=== PATIENT | female | born 1975 | race Caucasian/White ===

== ENCOUNTER 2018-04-28 07:29 | Observation (INO) ==
--- NOTE | 2018-04-22 09:23 | Anesthesiology Consultation ---
Date of Service April 22, 2018 Obesity Asthma Assessment & Plan (1) Encounter for pre-operative examination: Chart Review Chart Review: Acceptable Risk for Surgery and Patient NOT seen in Pre Admission Testing Consults Requested none History Surgery Operation Date: 04/28/18 11:30 Proposed Procedures p Bilateral Breast Mastectomy with Left [place] Lymph Node Biopsy (Injection and Scan) - True Dale DO, TIFFANY Height/Weight Height: 5 ft Weight: 90.718 kg Allergies Allergy/AdvReac Type Severity Reaction Status Date / Time "CHEAP JEWELRY" Allergy Unknown ITCHINESS Uncoded 04/21/18 08:36 SEASONAL ALLERGIES Allergy Unknown Uncoded 04/21/18 08:36 Medications Home Medications Medication Instructions Recorded Confirmed Last Taken Excedrin 1 dose PO UD PRN 04/21/18 04/21/18 Unknown albuterol sulfate 1 - 2 puff INHALATION UD PRN 04/21/18 04/21/18 Unknown diphenhydramine HCl [Benadryl] 15 mg PO QAM PRN 04/21/18 04/21/18 Unknown Past Medical History Medical History Anxiety Arthritis SELF DX OF HANDS Asthma "ALLERGIC" - INHALER USE ONCE A WEEK/NO RECENT FLARE UP Back problem "BAD BACK"/"MUSCULAR, OUT OF SHAPE" Breast cancer Heart palpitations TOLD STRESS RELATED "INFREQUENT" History of diverticulitis Past Family History Family History Mother Family history of breast cancer Past Surgical History Surgical History History of 2 sections History of colon resection History of colonoscopy History of eye surgery LAZY EYE - RIGHT? History of surgical biopsy R BREAST Social History Smoking Status: Former smoker tobacco type: cigarettes Smoking cigarettes per day: QUIT 2015 Do You Dip or Chew Tobacco: No Hx Alcohol Use: No Alcohol type: wine alcohol intake frequency: 0-2 drinks per day Hx Substance Use: No substance use type: marijuana Last Used Substance Other:: LAST USE LAST NIGHT, - AVERAGE USE A FEW TIMES A WEEK - ADVISED Testing Electrocardiogram Date: 02/11/18 Findings: + NSR @ (63) Laboratory Results 04/19 WBC: 9 HGB: 14 HCT: 43 PLT: 252 Na: 140 K: 3.8 Cl: 101 CO2: 27 BUN: 8 Cr: 0.8 G
[~2018-04-28 07:29] MED LIST: CEFAZOLIN 2000MG 2,000 MG/15 ML SYR IV SCH; LACTATED RINGER'S 1,000 ML IV SCH
--- NOTE | 2018-04-28 09:30 | Nuclear Medicine Report ---
NM sentinel node w breast img (left breast) CLINICAL HISTORY: BREAST CA COMPARISON STUDY: No previous studies for comparison. FINDINGS: A timeout was performed. The patient was prepped in sterile fashion. Five periareolar intradermal injections were performed utilizing a total dose of 0.5 mCi of technetiu m 99m Lymphoseek. Imaging was performed. A left axillary sentinel node was cutaneously marked. The patient was sent to the operating room for intraoperative localization. IMPRESSION: 1. Successful left breast lymphoscintigraphy. 2. A left axillary sentinel lymph node was percutaneously marked Electronically signed by: Vic Savage M.D. 04/28/2018 9:28 AM
[2018-04-28] MEDS ORDERED: LABETALOL HCL IV 5 MG/ML 20ML IV PRN (11:19)
[2018-04-28] MEDS ORDERED: ONDANSETRON INJ 2 MG/ML 2 ML VIAL IV PRN ×2 (11:19→16:02)
[2018-04-28] MEDS ORDERED: ePHEDrine sulfate 50 MG/ML AMP IV PRN (11:19)
[2018-04-28] MEDS ORDERED: HYDROmorphone INJ 1 MG/ML SYRINGE IV PRN (11:19)
[2018-04-28] MEDS ORDERED: MEPERIDINE HCL 25 MG/ML CARP IV PRN (11:19)
[2018-04-28] MEDS ORDERED: ATROPINE SULFATE 0.1 MG/ML 10ML SYR IV PRN (11:19)
[2018-04-28] MEDS ORDERED: PHENYLEPHRINE 100MCG/ML 5ML SYR IV PRN (11:19)
[2018-04-28] MEDS ORDERED: DEXAMETHASONE SOD INJ 4 MG/ML VIAL ONE (11:51)
[2018-04-28] MEDS ORDERED: fentaNYL citrate 100 MCG/2 ML VIAL ONE ×2 (11:51→16:56)
[2018-04-28] MEDS ORDERED: MIDAZOLAM HCL 1 MG/ML 2ML VIAL ONE (11:51)
[2018-04-28] MEDS ORDERED: LIDOCAINE HCL 2% 2 ML VIAL/AMP(20MG/ML) INFIL ONE (11:51)
[2018-04-28] MEDS ORDERED: PROPOFOL IV EMULSION 10 MG/ML 20 ML VIAL IV ONE ×2 (11:51→14:20)
[2018-04-28] MEDS ORDERED: ONDANSETRON INJ 2 MG/ML 2 ML VIAL ONE ×2 (11:51→12:57)
--- NOTE | 2018-04-28 12:13 | History & Physical Bridge Note ---
Date of Service April 28, 2018 History & Physical Bridge Note I have examined the patient, reviewed the History & Physical and in the interval since the performance of the History & Physical I have noted the following changes of clinical significance: [place] lymph node injected, film reviewed. no changes noted
[2018-04-28] MEDS ORDERED: BUPIVACAINE 0.5 % 5 MG/1 ML MPF 30ML VIAL ONE (12:25)
[2018-04-28] MEDS ORDERED: METHYLENE BLUE 0.5% 10 ML VIAL ONE (12:26)
[2018-04-28] MEDS ORDERED: ACETAMINOPHEN 1000 MG/100 ML IV IV ONE (12:58)
[2018-04-28] MEDS ORDERED: HYDROmorphone INJ 2 MG/ML SYR/VIAL ONE (13:10)
[2018-04-28] MEDS ORDERED: BUPIVACAINE LIPOSOME 1.3% 266 MG/20 ML VIAL INFIL ONE (14:05)
[2018-04-28] MEDS ORDERED: ROCURONIUM BROMIDE 10 MG/ML 5 ML VIAL ONE ×6 (14:20→14:21)
[2018-04-28] MEDS ORDERED: PHENYLEPHRINE 100MCG/ML 5ML SYR ONE (14:58)
[2018-04-28] MEDS ORDERED: NEOSTIGMINE METHYLSULFATE 5 MG/5 ML SYR ONE (14:58)
[2018-04-28] MEDS ORDERED: GLYCOPYRROLATE 0.2 MG/ML VIAL ONE (14:58)
[2018-04-28] MEDS ORDERED: ePHEDrine sulfate 50 MG/ML SYR ONE (15:02)
[2018-04-28] MEDS ORDERED: OXYCODONE/ACETAMINOPHEN 5mg/325mg TAB PO PRN (16:02)
[2018-04-28] MEDS ORDERED: MoRPHine SULFATE 4 MG/ML 1 ML CARP\\VIAL IV PRN (16:02)
[2018-04-28] MEDS ORDERED: MoRPHine SULFATE 2 MG/ML CARP IV PRN ×2 (16:02)
[2018-04-28] MEDS ORDERED: ACETAMINOPHEN 325 MG TAB PO PRN (16:12)
[2018-04-28] MEDS ORDERED: KEFZOL SPECIAL PROCEDURE STOCK 1 GM ADDVIAL IV ONE (16:17)
[2018-04-28] MEDS ORDERED: CEFAZOLIN 250 MG/ML 1 GM VIAL ONE (16:22)
--- NOTE | 2018-04-28 16:23 | Post Operative Brief Note ---
Immediate Post Op Note v1 Date of Surgery April 28, 2018 Pre & Post Diagnosis Operation Date: 04/28/18 11:10 Pre-Op Diagnosis: Left breast invasive ductal carcioma. Post-Op Diagnosis: Left breast invasive ductal carcioma. Procedure Operation Date: 04/28/18 11:10 Actual Procedures p Bilateral Breast Mastectomy with Left [place] Lymph Node Biopsy (Injection and Scan) - True Dale DO, FACS Surgeon True Dale DO, TIFFANY Mobile [employer] Architect Davina Hancock - PA; Cheng Porter - JAILYN Estimated Blood Loss 40 Findings Consistent with Post-Op Diagnosis single left sentinel lymph node identified. Bilateral mastectomies performed, good hemostasis, flaps healthy. Specimens left sentinel lymph node left mastectomy right mastectomy Drains Barrett-Hamlin Drain (10 flat, bilateral) Anesthesia Type General Complications none Disposition Accompanied Patient To Recovery: No Disposition: Recovery Room
--- NOTE | 2018-04-28 16:52 | Operative Report ---
Post Operative Report Pre & Post Diagnosis Operation Date: 04/28/18 11:10 Pre-Op Diagnosis: Left breast invasive ductal carcioma. Post-Op Diagnosis: Left breast invasive ductal carcioma. Procedure Operation Date: 04/28/18 11:10 Actual Procedures p Bilateral Breast Mastectomy with Left [place] Lymph Node Biopsy (Injection and Scan) - True Dale DO, TIFFANY Surgeon True Dale DO, TIFFANY [employer] Machine Operator Davina Hancock; Cheng Porter Estimated Blood Loss 40 Findings Consistent with Post-Op Diagnosis Single left sentinel lymph node, 1200 in vivo. Bilateral simple mastectomies performed, good hemostasis. Flaps healthy. 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 She was in the high risk breast cancer screening protocol, and after the diagnosis she elected for bilateral mastectomies. The invasive carcinoma was on the left so sentinel lymph node biopsy was planned. Plan for bilateral mastectomies with left axillary sentinel lymph node biopsy. The risks of the procedure were discussed, all questions were answered, and the patient agreed to proceed with surgery as planned. Description of Procedure Patient had a sentinel lymph node injection and lymphoscintigraphy performed prior to the procedure, and the axilla was examined with a gamma probe and confirmed uptake into the axilla. The patient was properly identified, consented, and taken to the operating room where she was placed in the supine position. General endotracheal anesthesia was induced. SCDs and a safety belt were placed. Preoperative antibiotics were administered. The patient's bilateral chest and axilla were prepped and draped in the standard sterile fashion. Surgical timeout was performed and all parties were in agreement that this was the correct patient and procedure to be performed and we continued as planned. An incision was made in the left axilla in a natural skin crease and deepened down to subcutaneous tissue with electrocautery. The gamma probe was used to localize the sentinel lymph node which read 1200 in vivo, and 1500 ex vivo. Lymph node was excised and the lymphovascular stalk was ligated with 3-0 silk. The axilla was reexamined with the gamma probe and was silent. The wound was packed and attention turned to the breast lesion. Attention then turned to the left breast. A transversely oriented elliptical incision was made that encompassed the nipple-arreolar complex on the left. Flaps were raised to the clavicle superiorly, the sternum medially, and the rectus sheath inferiorly. The breast was then taken off the chest wall including the pectoralis fascia from inferior medial to superior lateral. We then continued the dissection along the lateral border of the pectoralis muscle and completed excision of the axillary tail. The excision was stopped at the transition to the latissimus muscle. We completed the dissection and the specimen was removed. The specimen was oriented. The wound was irrigated and hemostasis was confirmed. We then repeated the process on the right. A transversely oriented elliptical incision was made that encompassed the nipple-arreolar complex and prior excision scar on the right. Flaps were raised to the clavicle superiorly, the sternum medially, and the rectus sheath inferiorly. The breast was then taken off the chest wall including the pectoralis fascia from inferior medial to superior lateral. We then continued the dissection along the lateral border of the pectoralis muscle and completed excision of the axillary tail. The excision was stopped at the transition to the latissimus muscle. We completed the dissection and the specimen was removed. The specimen was oriented. The wound was irrigated and hemostasis was confirmed. 10 mm OTIS drains were placed underneath each mastectomy flap. These exited inferior to the incision and were secured into place with 3-0 nylon sutures. The skin of all the incisions was closed with interrupted 3-0 Vicryl deep dermal sutures, followed by 4-0 Monocryl running subcuticular suture. Dermabond was placed over the axillary wound. Prineo dressing system was placed bilaterally. Fluffs, drain sponges, and an Rickie wrap were used to wrap the chest. The patient was extubated in the operating room and taken to the PACU where she recovered without apparent incident. All sponge, instrument and needle counts were correct at the conclusion of the procedure. The patient tolerated the procedure well. The physician's assistants were present and scrubbed throughout the case. They were essential in positioning the patient, prepping and draping, retraction exposure, removal of the breast tissue, closure of the incisions, and placement of the dressings. I attest to the content of the Intraoperative Record and any orders documented therein. Any exceptions are noted below.
[2018-04-28] MEDS: fentaNYL citrate 100 MCG/2 ML VIAL IV PRN ×4 (16:55→17:15)
--- NOTE | 2018-04-28 17:09 | Anesthesiology Progress Note ---
Date of Service April 28, 2018 Anesthesia Post Procedure Vital Signs Vital Signs: Temp Pulse Pulse Resp BP Pulse Ox 04/28/18 16:55 92 H 16 113/80 93 04/28/18 16:45 97 H 16 109/80 94 04/28/18 16:38 36.6 C 106 H 16 131/86 97 04/28/18 08:56 37 C 63 18 124/83 97 Notes Mental Status: alert / awake / arousable Patient Amnestic to Procedure: Yes Nausea / Vomiting: adequately controlled Pain: adequately controlled Airway Patency, RR, SpO2: stable & adequate BP & HR: stable & adequate Hydration State: stable & adequate Anesthetic Complications: no major complications apparent
--- NOTE | 2018-04-28 17:29 | Anesthesiology Progress Note ---
Date of Service April 28, 2018 Anesthesia Post Procedure Vital Signs Vital Signs: Temp Pulse Pulse Resp BP Pulse Ox 04/28/18 17:15 99 H 16 113/67 93 04/28/18 17:05 91 H 16 114/67 93 04/28/18 16:55 92 H 16 113/80 93 04/28/18 16:45 97 H 16 109/80 94 04/28/18 16:38 36.6 C 106 H 16 131/86 97 04/28/18 08:56 37 C 63 18 124/83 97 Notes Mental Status: alert / awake / arousable Patient Amnestic to Procedure: Yes Nausea / Vomiting: adequately controlled Pain: adequately controlled Airway Patency, RR, SpO2: stable & adequate BP & HR: stable & adequate Hydration State: stable & adequate Anesthetic Complications: no major complications apparent
[2018-04-28] MEDS ORDERED: ALBUTEROL HFA 8 GM INHALER INH PRN (18:18)
[2018-04-28] MEDS: LACTATED RINGER'S 1,000 ML IV SCH (21:47)
[2018-04-28] MEDS: OXYCODONE/ACETAMINOPHEN 5mg/325mg TAB PO PRN (22:17)
[2018-04-29] MEDS: OXYCODONE/ACETAMINOPHEN 5mg/325mg TAB PO PRN ×3 (03:18→13:02)
[2018-04-29] MEDS: LACTATED RINGER'S 1,000 ML IV SCH (03:18)
--- NOTE | 2018-04-29 13:01 | Surgery Progress Note ---
Date of Service April 29, 2018 Assessment & Plan (1) S/P mastectomy, bilateral: s/p b/l mastectomy, doing well, would like to go home d/c to home percocet for pain drain care, wound care instructions and activity limitations reviewed call when drains <30cc per day per drain return precautions given f/u as scheduled call clinic with questions or concerns plan of care discussed, all questions answered, patient expressed understanding and agrees with plan of care as stated Present on Admission?: Yes Subjective POD#1 bilateral mastectomy, left SLNBx. Doing well, pain controlled, ambulating. Physical Exam 2 Vital Signs (Past 24 Hours): Last Vital Signs Temp 36.7 C 04/29/18 12:44 Pulse 59 L 04/29/18 12:44 Resp 16 04/29/18 12:44 BP 98/64 L 04/29/18 12:44 Pulse Ox 95 04/29/18 12:44 Constitutional: WD/WN, vitals as above no acute distress Chest (Breasts): Additional Comments: dressings in place, c/d/i. Flaps examined and appear viable, some echymosis to left lateral incision. OTIS's with serosanguinous fluid, 550cc total since surgery.
--- NOTE | 2018-04-29 13:40 | Anesthesiology Progress Note ---
Date of Service April 29, 2018 Anesthesia Post Procedure Vital Signs Vital Signs: Temp Pulse Pulse Pulse Resp BP Pulse Ox 04/29/18 12:44 36.7 C 68 59 L 75 16 98/64 L 95 04/29/18 07:15 36.7 C 59 L 16 98/64 L 95 04/29/18 03:15 36.8 C 75 18 105/61 95 04/28/18 23:07 36.7 C 67 15 90/55 L 93 04/28/18 22:16 68 115/74 97 04/28/18 21:43 58 L 95/61 L 98 04/28/18 21:19 36.5 C 76 16 106/70 95 04/28/18 20:10 36.5 C 87 18 108/72 96 04/28/18 19:11 36.7 C 73 18 121/74 96 04/28/18 18:48 36.4 C L 73 18 104/66 96 04/28/18 18:10 36.9 C 82 18 117/81 94 04/28/18 17:45 85 15 125/80 92 04/28/18 17:36 99 H 14 121/80 94 04/28/18 17:25 36.4 C L 93 H 15 127/87 94 04/28/18 17:15 99 H 16 113/67 93 04/28/18 17:05 91 H 16 114/67 93 04/28/18 16:55 92 H 16 113/80 93 04/28/18 16:45 97 H 16 109/80 94 04/28/18 16:38 36.6 C 106 H 16 131/86 97 Pain Intensity Right Breast: Pain Intensity: 4 Notes Mental Status: alert / awake / arousable and participated in evaluation Patient Amnestic to Procedure: Yes Nausea / Vomiting: see Notes below Pain: adequately controlled Airway Patency, RR, SpO2: stable & adequate BP & HR: stable & adequate Hydration State: stable & adequate Anesthetic Complications: no major complications apparent and Pt Satisfied with anesthetic care
== END 2018-04-29 13:06 | disposition home or self-care (01) ==
LOC: 3W 07:29 → ASU 07:29